=== PATIENT | female | born 1995 | race Hispanic/Latino ===

== ENCOUNTER 2019-06-21 07:23 | Outpatient (CLI) | payer OTHER ==
--- NOTE | 2019-06-21 09:03 | ULT ---
OB ULTRASOUND: HISTORY: anatomy. FINDINGS: A single live intrauterine gestation is seen with the measurements corresponding to an estimated gest ational age of 20 weeks 2 days and an RUPAL of 11/06/2019. Estimated weight measures 323 g or 11 oz (35% by Hadlock criteria). BIOMETRY: BPD: 4.79 cm (20 weeks 4 days) HC: 17.75 cm (20 weeks 2 days) AC: 14.53 cm (19 weeks 6 days) FL: 3.20 cm (20 weeks 0 days) heart rate measures 147 beats per minute. Placenta is posteriorly located without evidence of p lacenta previa. BART measures 10.9 cm. Cervical length measures 3 cm. Three vessel cord, cord insertion, kidneys, bladder, stomach, four chambered heart, lateral katelin tricles, cerebellum, spine, lips/nose and upper and lower extremities are visualized. No definite fet al anomalies are seen. IMPRESSION: Single live intrauterine of 20 weeks' and 2 days' estimated gestational age and estimated d ate of delivery of 11/06/2019. POS: OFF
== END 2019-06-21 07:24 | disposition home or self-care (01) ==
LOC: BICULT 07:23
PROVIDERS: ATTEND Family Medicine
DX: Z34.02 Encounter for supervision of normal first pregnancy, second trimester (principal); Z3A.20 20 weeks gestation of pregnancy
CPT/HCPCS: 76805

== ENCOUNTER 2019-11-03 10:52 | Inpatient (IN) | payer MEDICAID, OTHER ==
[2019-11-09 21:26] VITALS: BMI 27.4
[2019-11-09] MEDS: Lactated Ringer's 1,000 ML IV SCH (21:30)
[2019-11-09] MEDS ORDERED: Lidocaine 1% (PF) 30 ML VIAL SC PRN (22:25)
[2019-11-09] MEDS ORDERED: hydrALAZINE 20 MG/ML VIAL SLOW IVP PRN (22:25)
[2019-11-09] MEDS ORDERED: Carboprost 250 MCG/ML AMP IM PRN (22:25)
[2019-11-09] MEDS ORDERED: Misoprostol 200 MCG TAB PR PRN (22:25)
[2019-11-09] MEDS ORDERED: Diphenoxylate HCl/Atropine Tablet PO PRN (22:25)
[2019-11-09] MEDS ORDERED: Ibuprofen 800 MG TAB PO PRN (22:25)
[2019-11-09] MEDS ORDERED: HYDROcodone/Acetaminophen 5/325 mg Tablet PO PRN (22:25)
[2019-11-09] MEDS ORDERED: Butorphanol Tartrate 1 MG/ML VIAL SLOW IVP PRN (22:25)
[2019-11-09] MEDS ORDERED: Methylergonovine 0.2 MG/ML VIAL IM PRN (22:25)
[2019-11-09] MEDS ORDERED: NS / Oxytocin 40 units/1000ml 1,000 ML IV PRN (22:25)
[2019-11-09] MEDS ORDERED: Promethazine HCl 25 MG/ML VIAL IM PRN (22:25)
[2019-11-09] MEDS ORDERED: Ondansetron PF 4 MG/2 ML Vial IVP PRN (22:25)
[2019-11-09] MEDS ORDERED: NS w/ Oxytocin 10 units 500 ML IV SCH (22:45)
[2019-11-09 22:52] LABS: Hemoglobin 11.7 g/dL (12.0-16.0); Mean Corpuscular HGB CONC 34.5 g/dL (32.0-36.0); Mean Corpuscular Hemoglobin 29.4 pg (27.0-31.0); Mean Corpuscular Volume 85.2 fL (78.0-98.0); Mean Platelet Volume 10.3 fL (7.4-10.4); Platelet Count 129 thou/uL (130-400); RBC Distribution Width 12.6 % (11.5-14.5); Red Blood Cell (RBC) Count 3.99 mill/uL (4.20-5.40); White Blood Cell (WBC) Count 7.3 thou/uL (4.8-10.8)
[2019-11-09] MEDS: Misoprostol 100 MCG TAB PO SCH (22:52)
[2019-11-09] MEDS ORDERED: Penicillin G Potassium 5 MILL.UNITS in Sodium Chloride 0.9% 100 ML IVPB SCH (23:00)
[2019-11-09 23:31] LABS: HBSAg Index 0.15 S/CO (0-0.99); Hep B Surf Ag Non-Reactive S/CO (NonReactive); Syphilis Antibody Nonreactive (Nonreactive); Syphilis Antibody Index 0.05 S/CO (<1.00 Non-Reactive)
[2019-11-10] MEDS: Misoprostol 100 MCG TAB PO SCH ×3 (02:56→11:23)
[2019-11-10] MEDS: Penicillin G 2.5 MILL.units 2.5 MILL.UNITS in Premix Bag 1 BAG IVPB SCH ×4 (02:58→17:51)
[2019-11-10] MEDS: Lactated Ringer's 1,000 ML IV SCH ×3 (06:52→19:45)
[2019-11-10] MEDS: NS w/ Oxytocin 10 units 500 ML IV SCH (14:04)
[2019-11-10] MEDS ORDERED: Fentanyl 4 mcg/Bup 0.1% Cadd 100 ML ONE (14:53)
[2019-11-10] MEDS ORDERED: Fentanyl 100 MCG/2 ML VIAL ONE (15:54)
[2019-11-10] MEDS ORDERED: Lidocaine 1% (PF) 30 ML VIAL ONE (18:23)
[2019-11-10] MEDS ORDERED: NS / Oxytocin 40 units/1000ml 1,000 ML ONE (18:23)
[2019-11-10] MEDS ORDERED: HYDROcodone/Acetaminophen 5/325 mg Tablet PO PRN ×2 (22:48)
[2019-11-10] MEDS ORDERED: Bisacodyl 10 MG SUPP PR PRN (22:48)
[2019-11-10] MEDS ORDERED: Preparation H Ointment 28 GM TUBE PR PRN (22:48)
[2019-11-10] MEDS ORDERED: Benzocaine-Menthol 82.5 ML CAN TOP PRN (22:48)
[2019-11-10] MEDS ORDERED: Milk Of Magnesia 30 ML UDCUP PO PRN (22:48)
[2019-11-10] MEDS ORDERED: Adacel (T-DAP) 0.5 ML SYRINGE IM ONE (22:48)
[2019-11-10] MEDS ORDERED: diphenhydrAMINE 25 MG CAP PO PRN (22:48)
[2019-11-10] MEDS ORDERED: Ondansetron PF 4 MG/2 ML Vial IVP PRN (22:48)
[2019-11-10] MEDS ORDERED: hydrALAZINE 20 MG/ML VIAL SLOW IVP PRN (22:48)
[2019-11-10] MEDS ORDERED: NS / Oxytocin 40 units/1000ml 1,000 ML IV SCH (22:48)
[2019-11-10] MEDS ORDERED: Lanolin Ointment 7 GM TUBE TOP PRN (22:48)
[2019-11-10] MEDS ORDERED: Ibuprofen 800 MG TAB PO SCH (23:00)
[2019-11-11] MEDS: NS w/ Oxytocin 10 units 500 ML IV SCH (00:23)
[2019-11-11] MEDS: Penicillin G 2.5 MILL.units 2.5 MILL.UNITS in Premix Bag 1 BAG IVPB SCH (00:23)
[2019-11-11] MEDS: Ibuprofen 800 MG TAB PO SCH ×3 (04:13→21:26)
[2019-11-11 07:10] LABS: Hemoglobin 10.8 g/dL (12.0-16.0); Mean Corpuscular HGB CONC 34.8 g/dL (32.0-36.0); Mean Corpuscular Hemoglobin 29.7 pg (27.0-31.0); Mean Corpuscular Volume 85.4 fL (78.0-98.0); Mean Platelet Volume 9.5 fL (7.4-10.4); Platelet Count 97 thou/uL (130-400); RBC Distribution Width 12.5 % (11.5-14.5); Red Blood Cell (RBC) Count 3.64 mill/uL (4.20-5.40); White Blood Cell (WBC) Count 13.7 thou/uL (4.8-10.8)
[2019-11-11] MEDS: Ferrous Sulfate 325 MG TAB PO SCH ×2 (07:54→16:29)
[2019-11-11] MEDS: Prenatal Vitamin 1 TAB PO SCH (10:09)
[2019-11-11] MEDS: Docusate Calcium (SURFAK) 240 MG CAP PO SCH ×2 (10:09→21:26)
[2019-11-12 04:46] VITALS: BP 110/62; TEMP 98.2
[2019-11-12] MEDS: Ibuprofen 800 MG TAB PO SCH (05:50)
[2019-11-12] MEDS: Ferrous Sulfate 325 MG TAB PO SCH (10:32)
[2019-11-12] MEDS: Docusate Calcium (SURFAK) 240 MG CAP PO SCH (10:38)
[2019-11-12] MEDS: Prenatal Vitamin 1 TAB PO SCH (10:38)
== END 2019-11-12 17:30 | disposition home or self-care (01) | DRG 807 ==
LOC: EDSTATUS 19:42 → L&D 11-09 20:47 → 3SW 11-11 01:32
PROVIDERS: ADMIT Family Medicine; ATTEND Family Medicine
PROC: 10E0XZZ Delivery of Products of Conception, External Approach (ICD-10-PCS; principal; 2019-11-10)
PROC: 0HQ9XZZ Repair Perineum Skin, External Approach (ICD-10-PCS; 2019-11-10)
DX: O70.9 Perineal laceration during delivery, unspecified (principal); Z37.0 Single live birth; Z3A.40 40 weeks gestation of pregnancy
CPT/HCPCS: 36415; 51702; 85027; 86780; 86850; 86900; 86901; 87340; J2001; J2540; J2590; J3010; J3490

== ENCOUNTER 2019-12-29 22:23 | Emergency (ER) | payer OTHER ==
[2019-12-29 22:53] LABS: #Basophils 0.1 thou/uL (0.0-0.2); #Eosinphils 0.1 thou/uL (0.0-0.7); #Monocytes 0.3 thou/uL (0.11-0.59); #Neutrophils 4.6 thou/uL (1.40-6.50); %Basophils 0.8 % (0.0-1.0); %Eosinophils 1.6 % (0.0-10.0); %Lymphocytes 36.7 % (21.0-51.0); %Neutrophils 56.9 % (42.0-75.0); Hemoglobin 14.5 g/dL (12.0-16.0); Mean Corpuscular Hemoglobin 29.7 pg (27.0-31.0); Mean Corpuscular Volume 87.5 fL (78.0-98.0); Mean Platelet Volume 8.1 fL (7.4-10.4); Platelet Count 230 thou/uL (130-400); RBC Distribution Width 12.2 % (11.5-14.5); Red Blood Cell (RBC) Count 4.88 mill/uL (4.20-5.40); White Blood Cell (WBC) Count 8.2 thou/uL (4.8-10.8)
[2019-12-29 23:16] LABS: ALT (SGPT) 16 U/L (8-55); AST (SGOT) 19 U/L (5-34); Albumin 4.5 g/dL (3.5-5.0); Alkaline Phosphatase 119 U/L (40-110); Anion Gap 14 mmol/L (10-20); BUN (Urea Nitrogen) 16 mg/dL (7.0-18.7); Bilirubin, Total 0.5 mg/dL (0.2-1.2); Calc. Creatinine Clearance 0 mL/min (70-130); Calcium 9.7 mg/dL (7.8-10.44); Carbon Dioxide 26 mmol/L (22-29); Chloride 104 mmol/L (98-107); Estimated GFR-MDRD 86; Glucose 114 mg/dL (70-105); Potassium 3.9 mmol/L (3.5-5.1); Protein, Total 7.5 g/dL (6.0-8.3); Sodium 140 mmol/L (136-145)
[2019-12-29 23:49] LABS: Bilirubin Negative (Negative); Blood, Urine Negative (Negative); Clarity Clear (Clear); Glucose, Urine (Dipstick) Normal (Negative); Leukocyte Negative Leu/uL (Negative); Nitrite Negative (Negative); Protein, Urine (Dipstick) Negative (Neg-Trace); Urobilinogen Normal mg/dL (Less than 2)
[2019-12-29 23:51] LABS: Pregnancy Test - Urine (BHCG) Negative (Negative); Pregu Control Background? CLEAR/WHITE (CLR/WHITE); Pregu Control Bar Appear? YES (CONTROL BAR); Specific Gravity 1.021 (1.002-1.036)
--- NOTE | 2019-12-30 07:32 | RAD ---
Exam: Chest one view HISTORY:Syncope and collapse. Comparison: None FINDINGS: Cardiac silhouette: Normal Aorta: Unremarkable Pulmonary vessels: Normal Costophrenic angles: Clear LUNGS: No masses or consolidation. Pneumothorax: None Osseous abnormalities: None IMPRESSION: No acute cardiopulmonary process.
--- NOTE | 2019-12-30 07:53 | CT ---
ABDOMEN CT WITHOUT CONTRAST PELVIC CT WITHOUT CONTRAST: HISTORY: Patient was scanned incorrectly. ER physician was notified. COMPARISON: None. FINDINGS: Abdomen CT: Lung bases:Clear. Heart size: Normal heart size. No significant pericardial fluid. Aorta: Normal caliber aorta. No periaortic fat stranding. Solid organs: Limited evaluation of the solid organs by the lack of IV contrast. Grossly no solid org an abnormality. Lymph nodes: No gastrohepatic, retrocrural or periportal lymphadenopathy. Gallbladder: Contracted, likely due to a nonfasting state. Mesentery: No mass, lymphadenopathy, free air or free fluid. Kidneys: Bilaterally, no hydronephrosis, nephrolithiasis or perinephric fat stranding. Bilateral uret ers have a normal caliber. No hydroureter, periureteral fat stranding or ureterolithiasis. Alimentary canal: Limited evaluation by the lack of oral contrast. No evidence of a bowel obstruction . Normal caliber appendix. CT PELVIS: No mass, adenopathy, free air or free fluid. Limited evaluation of the reproductive organs. Intraute rine device is noted. Urinary bladder: Decompressed, limiting evaluation. Osseous structures: No lytic or blastic lesions. IMPRESSION: 1. Incorrect patient was scanned. ER physician was notified. 2. No acute abnormality in the abdomen or pelvis. Transcribed Date/Time: 12/30/2019 9:35 AM
== END 2019-12-30 02:04 | disposition home or self-care (01) ==
LOC: ERS 22:23
DX: S00.03XA Contusion of scalp, initial encounter (principal); W22.8XXA Striking against or struck by other objects, initial encounter
CPT/HCPCS: 36415; 71045; 74176; 80053; 81003; 81025; 85025; 93005; 94760

== ENCOUNTER 2022-10-13 12:09 | Outpatient (CLI) | payer OTHER | END 2022-10-13 12:10 | disposition home or self-care (01) | LOC: BICULT 12:09 | PROVIDERS: ATTEND Family Medicine | DX: Z34.82 Encounter for supervision of other normal pregnancy, second trimester (principal); Z3A.23 23 weeks gestation of pregnancy | CPT/HCPCS: 76805 ==

== ENCOUNTER 2023-02-26 00:19 | Emergency (ER) | payer OTHER ==
[2023-02-26] MEDS ORDERED: Dexamethasone 10 MG/ML VIAL ONE (00:52)
[2023-02-26] MEDS ORDERED: Cyclobenzaprine 10 MG TAB ONE (00:52)
[2023-02-26] MEDS ORDERED: Ketorolac Tromethamine 10 MG TAB PO SCH (01:00)
== END 2023-02-26 01:07 | disposition home or self-care (01) ==
LOC: ERS 00:19
DX: M54.31 Sciatica, right side (principal)
CPT/HCPCS: 99283; J1100

== ENCOUNTER 2023-03-05 21:09 | Emergency (ER) | payer OTHER ==
[2023-03-05] MEDS ORDERED: Boostrix 0.5 ML (Tdap) VIAL (>/=7 yrs of age) ONE (22:09)
[2023-03-05] MEDS ORDERED: Ibuprofen 800 MG TAB ONE (22:09)
[2023-03-05] MEDS ORDERED: Amoxicillin/Potassium Clav 875 MG TAB ONE (22:09)
== END 2023-03-05 23:40 | disposition home or self-care (01) ==
LOC: ERS 21:09
DX: S91.052A Open bite, left ankle, initial encounter (principal); W55.01XA Bitten by cat, initial encounter; Z23 Encounter for immunization
CPT/HCPCS: 90471; 90715

== ENCOUNTER 2023-12-11 09:58 | Outpatient (CLI) | payer OTHER | END 2023-12-11 09:59 | disposition home or self-care (01) | LOC: BICULT 09:58 | PROVIDERS: ATTEND Family Medicine | DX: Z34.82 Encounter for supervision of other normal pregnancy, second trimester (principal); Z3A.20 20 weeks gestation of pregnancy | CPT/HCPCS: 76805 ==